=== PATIENT | female | born 1980 | race Two or more races ===

== ENCOUNTER 2024-07-15 19:31 | Emergency (ER) | payer MEDICAID ==
[~2024-07-15] VITALS: Ht 175.3 cm; Wt 64.0 kg
[2024-07-15 19:43] VITALS: TEMP 36.7; O2SAT 100
[2024-07-16 00:53] VITALS: PULSE 86
[2024-07-16] MEDS: KETOROLAC 15MG/ML VIAL IM ONE (00:53)
[2024-07-16 00:54] VITALS: BP 142/88; RESP 16
[2024-07-16] MEDS: LIDOCAINE 5% PATCH TOP SCH (00:54)
[2024-07-16] MEDS ORDERED: LIDO700A15 TP (02:47)
[2024-07-16] MEDS ORDERED: NAPR-1176 MT (02:47)
[2024-07-16] MEDS ORDERED: CYCL5TAB3 MT (02:47)
== END 2024-07-16 02:57 | disposition home or self-care (01) ==
LOC: ER 19:31
DX: M54.2 Cervicalgia (principal); F31.9 Bipolar disorder, unspecified; Z79.1 Long term (current) use of non-steroidal anti-inflammatories (NSAID); Z88.2 Allergy status to sulfonamides
CPT/HCPCS: 81025; 72040; 99285; 72125; 96372; J1885; A4663; Z7610 ×4; A4606